=== PATIENT | female | born 1985 | race Caucasian/White ===

== ENCOUNTER 2022-05-25 22:14 | Emergency (ER) | payer SELFPAY ==
[2022-05-26 01:56] LABS: CARBON DIOXIDE,CO2 24.2 mmol/L (21.0-32.0)
[2022-05-26] MEDS ORDERED: Acetaminophen 500 MG Tab PO ONE (02:16)
[2022-05-26 03:14] LABS: C. TRACHOMATIS BY PCR NOT DETECTED; N. GONORRHOEAE BY PCR NOT DETECTED
== END 2022-05-26 03:31 | disposition home or self-care (01) ==
LOC: MW.ED 22:14
DX: O20.0 Threatened abortion (principal); O23.591 Infection of other part of genital tract in pregnancy, first trimester; B96.89 Other specified bacterial agents as the cause of diseases classified elsewhere; Z3A.12 12 weeks gestation of pregnancy
CPT/HCPCS: 36415; 76815; 80053; 81003; 84702; 85025; 86850; 86900; 86901; 87480; 87491; 87510; 87591; 87660; 99284; A9270

== ENCOUNTER 2022-06-03 11:14 | Emergency (ER) | payer SELFPAY ==
[2022-06-03] MEDS ORDERED: Sodium Chloride 0.9% 1,000 ML IV ONE (12:37)
[2022-06-03] MEDS ORDERED: Ondansetron 4 MG/2 ML SDV IVPUSH ONE (12:37)
[2022-06-03 14:17] LABS: CARBON DIOXIDE,CO2 25.2 mmol/L (21.0-32.0); POTASSIUM,K 4.1 mmol/L (3.5-5.1)
== END 2022-06-03 16:04 | disposition home or self-care (01) ==
LOC: MW.ED 11:14
DX: O21.9 Vomiting of pregnancy, unspecified (principal); O99.511 Diseases of the respiratory system complicating pregnancy, first trimester; J45.909 Unspecified asthma, uncomplicated; Z90.49 Acquired absence of other specified parts of digestive tract; Z3A.13 13 weeks gestation of pregnancy
CPT/HCPCS: 36415; 76815; 80053; 81003; 85025; 96361; 96374; 99284; J2405; J7030

== ENCOUNTER 2022-06-18 11:13 | Emergency (ER) | payer SELFPAY | END 2022-06-18 14:37 | disposition home or self-care (01) | LOC: MW.ED 11:13 | DX: O23.41 Unspecified infection of urinary tract in pregnancy, first trimester (principal); N39.0 Urinary tract infection, site not specified; Z3A.00 Weeks of gestation of pregnancy not specified | CPT/HCPCS: 81001; 99284 ==